=== PATIENT | female | born 1950 | race Caucasian/White ===

== ENCOUNTER → 2019-02-16 | Outpatient (CLI) | payer MEDICARE, OTHER, SELFPAY ==
[2015-02-05 22:56] VITALS: BMI 28.2
[2019-02-16 18:00] LABS: Anion Gap 3 (5-15); BUN 17 mg/dL (7-18); BUN/Creat Ratio 21.5 RATIO (10-20); Chloride 109 mmol/L (98-107); Creatinine, Serum 0.79 mg/dL (0.55-1.02); EST Glomerular Filtration Rate 77 mL/min (>60); Est Glom Filt Rate - Afr Amer 93 mL/min (>60); Glucose 84 mg/dL (74-106); Potassium 4.1 mmol/L (3.5-5.1); Sodium Level 140 mmol/L (136-145); T4 Total, Thyroxin 10.1 ug/dL (4.8-13.9); Thyroid Stim Hormone (TSH) 0.54 uIU/mL (0.358-3.74)
== END | disposition home or self-care (01) ==
LOC: MFPLAB 15:44
PROVIDERS: Family Provider Family Medicine; PCP Family Medicine; Referring Provider Family Medicine; Visit Provider Family Medicine
DX: E03.9 Hypothyroidism, unspecified (principal); I10 Essential (primary) hypertension
CPT/HCPCS: 36415; 80048; 84436; 84443

== ENCOUNTER → 2021-05-24 16:15 | Outpatient (CLI) | payer MEDICARE, SELFPAY ==
[2021-05-24 17:46] LABS: Absolute Neutrophil Count 3.6 X10^3/uL (2.0-7.7); Basophil# 0.07 X10^3/uL; Basophil% 1.1 % (0-1); Eosinophil# 0.13 X10^3/uL; Eosinophils% 2.1 % (0-5); Hematocrit 42.4 % (37-47); Hemoglobin 13.4 g/dL (12.0-15.0); Lymphocyte % 30.6 % (19-41); Mean Corp Hgb Conc 31.6 g/dL (32-36); Mean Corpuscular Hgb 29.6 pg (27.0-32.0); Mean Corpuscular Volume 93.6 fL (81-99); Mean Platelet Vol. 13.5 fl (6.2-12.0); Monocyte# 0.46 X10^3/uL; Monocyte% 7.4 % (0-10); NRBC Flagged by Analyzer 0 % (0-5); Neutrophil # 3.64 X10^3/uL (2.7-7.7); Neutrophil % 58.6 % (47-70); Platelet Count 155 K/mm3 (150-450); RBC Distribution Width SD 44.5 fl (35.1-43.9); Red Blood Count 4.53 M/mm3 (4.2-5.4); White Blood Count 6.2 K/mm3 (4.4-11.0)
[2021-05-24 18:10] LABS: Vitamin D,25 Hydroxy 22.5 ng/mL
[2021-05-24 18:16] LABS: ALB/GLOB Ratio 1.2 RATIO (0.9-2.4); AST(SGOT) 19 U/L (15-37); Alanine Aminotransfer ALT/SGPT 27 U/L (13-56); Albumin, Serum 3.9 g/dL (3.2-5.0); Alkaline Phosphatase 99 U/L (45-117); Anion Gap 6 (5-15); BUN 21 mg/dL (7-18); BUN/Creat Ratio 23.1 RATIO (10-20); Calcium,Total 8.9 mg/dL (8.5-10.1); Chloride 110 mmol/L (98-107); Creatinine, Serum 0.91 mg/dL (0.55-1.02); EST Glomerular Filtration Rate 65 mL/min (>60); Est Glom Filt Rate - Afr Amer 79 mL/min (>60); Globulin 3.2 g/dL (2.2-4.2); Glucose 101 mg/dL (74-106); Magnesium 2.5 mg/dL (1.6-2.6); Potassium 4.3 mmol/L (3.5-5.1); Protein, Total 7.1 g/dL (6.4-8.2); Sodium Level 142 mmol/L (136-145); T4 Total, Thyroxin 10.7 ug/dL (4.8-13.9); Thyroid Stim Hormone (TSH) 0.34 uIU/mL (0.358-3.74)
== END ==
PROVIDERS: PCP Family Medicine; Referring Provider Family Medicine; Visit Provider Family Medicine
DX: E03.9 Hypothyroidism, unspecified (principal); R25.2 Cramp and spasm; E55.9 Vitamin D deficiency, unspecified; I10 Essential (primary) hypertension
CPT/HCPCS: 36415; 80053; 82306; 83735; 84436; 84443; 85025

== ENCOUNTER → 2022-09-16 | Outpatient (CLI) | payer MEDICARE, SELFPAY ==
[2022-09-16 12:29] LABS: Absolute Lymphocyte Count 1.61 X10^3/uL (0.83-4.51); Absolute Neutrophil Count 3.1 X10^3/uL (2.0-7.7); Basophil# 0.05 X10^3/uL; Basophil% 0.9 % (0-1); Eosinophil# 0.13 X10^3/uL; Eosinophils% 2.4 % (0-5); Hematocrit 43.2 % (37-47); Hemoglobin 13.9 g/dL (12.0-15.0); Lymphocyte # 1.61 X10^3/ul (0.83-4.51); Lymphocyte % 30.1 % (19-41); Mean Corp Hgb Conc 32.2 g/dL (32-36); Mean Corpuscular Volume 93.1 fL (81-99); Mean Platelet Vol. 12.1 fl (6.2-12.0); Monocyte# 0.42 X10^3/uL; Monocyte% 7.9 % (0-10); NRBC Flagged by Analyzer 0 % (0-5); Neutrophil # 3.12 X10^3/uL (2.7-7.7); Neutrophil % 58.5 % (47-70); Platelet Count 163 K/mm3 (150-450); RBC Distribution Width CV 13.1 % (11.6-14.6); RBC Distribution Width SD 44.6 fl (35.1-43.9); Red Blood Count 4.64 M/mm3 (4.2-5.4); White Blood Count 5.3 K/mm3 (4.4-11.0)
[2022-09-16 13:12] LABS: Anion Gap 7 (5-15); BUN 20 mg/dL (7-18); BUN/Creat Ratio 29.2 RATIO (10-20); Calcium,Total 9.4 mg/dL (8.5-10.1); Chloride 109 mmol/L (98-107); Cholesterol 270 mg/dL (200); Creatinine, Serum 0.68 mg/dL (0.55-1.02); EST Glomerular Filtration Rate 90 mL/min (>60); Est Glom Filt Rate - Afr Amer 109 mL/min (>60); Glucose 92 mg/dL (74-106); High Density Lipoprotein 43 mg/dL; Magnesium 2.6 mg/dL (1.6-2.6); Sodium Level 141 mmol/L (136-145); Triglycerides 201 mg/dL; Very Low Density Lipoprotein 40 mg/dL (5-40)
== END | disposition home or self-care (01) ==
PROVIDERS: PCP Family Medicine; Referring Provider Family Medicine; Visit Provider Family Medicine
DX: I10 Essential (primary) hypertension (principal); K21.9 Gastro-esophageal reflux disease without esophagitis; E55.9 Vitamin D deficiency, unspecified
CPT/HCPCS: 36415; 80048; 80061; 82306; 83735; 85025

== ENCOUNTER 2023-12-08 19:12 | Emergency (ER) | payer MEDICARE, SELFPAY ==
[2023-12-08 19:14] VITALS: BP 150/73; PULSE 81; RESP 18; TEMP 36.1; O2SAT 99; BMI 25.4
[2023-12-08] MEDS: Ketorolac 15 MG/ML Vial IV (19:59)
[2023-12-08 20:10] LABS: Absolute Lymphocyte Count 2.59 X10^3/uL (0.83-4.51); Absolute Neutrophil Count 5.5 X10^3/uL (2.0-7.7); Basophil# 0.09 X10^3/uL; Eosinophil# 0.16 X10^3/uL; Eosinophils% 1.8 % (0-5); Hematocrit 41.9 % (37-47); Hemoglobin 13.5 g/dL (12.0-15.0); Lymphocyte # 2.59 X10^3/ul (0.83-4.51); Lymphocyte % 29.2 % (19-41); Mean Corp Hgb Conc 32.2 g/dL (32-36); Mean Corpuscular Hgb 29.3 pg (27.0-32.0); Mean Corpuscular Volume 91.1 fL (81-99); Mean Platelet Vol. 11.9 fl (6.2-12.0); Monocyte# 0.42 X10^3/uL; Monocyte% 4.7 % (0-10); NRBC Flagged by Analyzer 0 % (0-5); Neutrophil # 5.54 X10^3/uL (2.7-7.7); Neutrophil % 62.6 % (47-70); Platelet Count 174 K/mm3 (150-450); RBC Distribution Width CV 13.7 % (11.6-14.6); RBC Distribution Width SD 45.4 fl (35.1-43.9); White Blood Count 8.9 K/mm3 (4.4-11.0)
--- NOTE | 2023-12-08 20:10 | RAD_ITS ---
STUDY: X-RAY - LEFT HAND REASON FOR EXAM: Female, 73 years old. hand injury TECHNIQUE: 3 view(s) of the hand. COMPARISON: None. FINDINGS: No radiodense foreign body. Normal radiocarpal articulation. Normal distal radioulnar joint. Normal visualized carpal bones. Normal carpal articulations Normal carpometacarpal articulation of the thumb. Normal second through fifth carpometacarpal joints. Normal metacarpi. Normal metacarpophalangeal joint of the thumb. Normal interphalangeal joint of the thumb. Normal proximal and distal phalanges of the thumb. Normal metacarpophalangeal joints of the second through fifth fingers. There is diffuse articular joint space narrowing of the proximal and distal interphalangeal joints of the second through fifth fingers, but without erosive changes or periarticular soft tissue swelling. Normal phalanges of the second through fifth fingers. Soft tissue swelling index finger. RAD/Hand Min 3 Views IMPRESSION: Severe degenerative changes interphalangeal joints. Soft tissue swelling index finger. No radiodense foreign body. Electronically Signed: Chris Martell MD at 20:36 EDT ,
[2023-12-08 20:42] LABS: Anion Gap 7 (5-15); BUN 21 mg/dL (7-18); BUN/Creat Ratio 18.9 RATIO (10-20); Calcium,Total 9.1 mg/dL (8.5-10.1); Chloride 109 mmol/L (98-107); Creatinine, Serum 1.11 mg/dL (0.55-1.02); EST Glomerular Filtration Rate 51 mL/min (>60); Est Glom Filt Rate - Afr Amer 62 mL/min (>60); Estimated Creatinine Clearance 36.34 ml/min; Glucose 165 mg/dL (74-106); Potassium 3.9 mmol/L (3.5-5.1); Sodium Level 141 mmol/L (136-145)
--- NOTE | 2023-12-08 21:17 | EDS_ITS ---
HPI History of Present Illness Chief Complaint: Cellulitis Narrative Narrative: Patient presenting with left hand pain. Patient states she was trimming the bushes yesterday and had some dacia that she was pulling down and some sticks that she was trimming and she thought that because she had scrapes on the palmar surface and dorsal surface of her hand that is thick and gone through her hand. She states she removed this and is cleaned it up to get some bruising and swelling located over the left hand proximal to the MCP of this fourth and fifth digit. No numbness or tingling. She initially stated she had pain that went up her arm however after further discussion she states that a door at home had fallen onto her left shoulder and forearm and that is where the pain was coming from. She states she does not want this evaluated as this is not very painful. She does have some bruising noted on the left forearm laterally. She has not had any systemic signs or symptoms. [facility] Medical History Back problem Goiter High cholesterol High triglycerides History of cancer History of fracture Hypertension Rheumatoid arthritis Thyroid disease Vision problem Home Medications ibuprofen 200 mg tablet 200 mg PO Q6H PRN 02/03/23 [History Last Taken Unknown] levothyroxine 75 mcg capsule 75 mcg PO DAILY 02/03/23 [History Last Taken Unknown] lisinopril 10 mg tablet 10 mg PO DAILY 02/03/23 [History Last Taken Unknown] rosuvastatin 10 mg tablet 10 mg PO DAILY 02/03/23 [History Last Taken Unknown] Allergy/AdvReac Type Severity Reaction Status Date / Time No Known Allergies Allergy Verified 12/08/23 19:14 Social History Smoking Status: Never smoker alcohol intake: never substance use type: does not use what type of physical activity do you participate in: none ROS ROS ED Constitutional Constitutional ED: Denies chills, fever(s) or sweats Eyes Eyes: Denies blurry vision or change in vision ENT ENT ED: Denies ear pain or sore throat Cardiovascular Cardiovascular: Denies chest pain, palpitations or racing heartbeat Respiratory/Chest Respiratory/Chest: Denies cough, dyspnea or sputum Gastrointestinal Gastrointestinal: Denies abdominal pain, constipation, diarrhea, nausea or vomiting Genitourinary Genitourinary ED: Denies dysuria, hematuria or urinary frequency Musculoskeletal Musculoskeletal: Reports other Details: Left hand pain ; Denies arthralgias, myalgias or neck pain Integumentary Reports other Details: Bruising and swelling left hand ; Denies abscess, Abrasions or rash Neurologic Neurologic: Denies headache(s), paresthesias or weakness Psychiatric Psychiatric: Denies anxiety, depression, suicidal ideation or suicidal thoughts Endocrine Endocrinology: Denies polydipsia or polyuria EXAM Physical Exam Const Vital Signs: 12/08/23 19:14 Temperature 97 F L Temperature Source Temporal Pulse Rate 81 Respiratory Rate 18 Blood Pressure 150/73 H Blood Pressure Mean 98 Pulse Ox 99 Oxygen Delivery Method Room Air Positive well nourished General Appearance ED: NAD; Negative for pallor HEENT Reports moist mucous membranes Eyes PERRL Resp normal respiratory effort Cardio regular rate and regular rhythm Extremity Extremity Narrative: There is tenderness over the left hand at the dorsal aspect proximal to the fourth and third MCP. There is no obvious deformity. There does not appear to be any puncture wound. There does appear to be a superficial abrasion. On the volar surface there are also some superficial abrasions. She has brisk cap refill to all 5 fingers. There is pain with range of motion diffusely. There is no numbness. Cap refill is brisk. There is no evidence of cellulitis or lymphangitic streaking. Neuro oriented x3 Psych mental status grossly normal Skin General Skin Exam: Negative for jaundice or pallor MDM MDM MDM Narrative Medical decision making narrative: Patient presenting with left hand pain. She is not a great informant about the history of how she hurt her hand but for the most part it sounds like she had a vine wrapped around her hand and some sticks that caused superficial abrasions to the hand as well. Does not appear to be a through and through injury. Neurovascularly her hand is intact. She was concerned for infection but I do not see any evidence of that. Due to the concern we did check some basic lab work and her CBC does not show any evidence of leukocytosis. Hemoglobin stable. Platelets are normal. Creatinine slightly elevated at 1.11. Patient counseled of this and I stated that she needed to drink more fluids. She states I drink a lot of water.. I discussed with her that she does not need any antibiotics. I recommended [id number] Tylenol and I recommended ice. She states he is going a road trip tomorrow and she thought that icing it would be difficult but I recommended she stopped every few hours and get some ice to ice her hand. I recommend she ice for 10 to 15 minutes and then electrolyte and temperature and reice it. I recommended elevation. I do not believe she needs any narcotics. We discussed this at length and she is comfortable with this. Impression: 1. Superficial abrasion left hand 2. Left hand contusion Lab Data Attestation: I reviewed the patient's lab results. Labs: Laboratory Results - last 24 hr 12/08/23 20:00 WBC 8.9 RBC 4.60 Hgb 13.5 Hct 41.9 MCV 91.1 MCH 29.3 MCHC 32.2 RDW Std Deviation 45.4 H RDW Coeff of Surendra 13.7 Plt Count 174 MPV 11.9 Immature Gran % (Auto) 0.700 Neut % (Auto) 62.6 Lymph % (Auto) 29.2 [place] % (Auto) 4.7 Eos % (Auto) 1.8 Baso % (Auto) 1.0 Absolute Neuts (auto) 5.5 Absolute Lymphs (auto) 2.59 Nucleated RBC % 0 Sodium 141 Potassium 3.9 Chloride 109 H Carbon Dioxide 25.0 Anion Gap 7 BUN 21 H Creatinine 1.11 H Estim Creat Clear Calc 36.34 Est GFR (MDRD) Af Amer 62 Est GFR (MDRD) Non-Af 51 L BUN/Creatinine Ratio 18.9 Glucose 165 H Calcium 9.1 Radiography Diagnostic Testing: Clinical Impression(s) from Imaging Studies Hand X-Ray 12/08/23 20:10 IMPRESSION: Severe degenerative changes interphalangeal joints. Soft tissue swelling index finger. No radiodense foreign body. Electronically Signed: Chris Martell MD at 20:36 EDT , Discharge Plan Triage Chief Complaint: Cellulitis ED Provider: Magdy Morales Dx/Rx/DC Orders Prescriptions: No Action rosuvastatin 10 mg tablet 10 mg PO DAILY levothyroxine 75 mcg capsule 75 mcg PO DAILY lisinopril 10 mg tablet 10 mg PO DAILY ibuprofen 200 mg tablet 200 mg PO Q6H PRN Primary Care Provider: Lesly Reed Referrals: Lesly Reed MD [Primary Care Provider] -
[2023-12-08 21:22] VITALS: BP 122/65; PULSE 53; RESP 16; TEMP 36.8; O2SAT 99
== END 2023-12-08 22:04 | disposition home or self-care (01) ==
PROVIDERS: Emergency Provider Student in an Organized Health Care Education/Training Program; PCP Family Medicine; Visit Provider Student in an Organized Health Care Education/Training Program
DX: S60.222A Contusion of left hand, initial encounter (principal); S60.512A Abrasion of left hand, initial encounter; X58.XXXA Exposure to other specified factors, initial encounter; Y93.H2 Activity, gardening and landscaping; E78.00 Pure hypercholesterolemia, unspecified; I10 Essential (primary) hypertension; Z79.899 Other long term (current) drug therapy
CPT/HCPCS: 73130; 80048; 85025; 96374; 99283; A4216

== ENCOUNTER → 2024-01-12 | Outpatient (CLI) | payer MEDICARE, SELFPAY ==
[2024-01-12 13:36] LABS: AST(SGOT) 29 U/L (15-37); Alanine Aminotransfer ALT/SGPT 40 U/L (13-56); Anion Gap 9 (5-15); BUN 23 mg/dL (7-18); BUN/Creat Ratio 21.1 RATIO (10-20); Calcium,Total 9.5 mg/dL (8.5-10.1); Chloride 107 mmol/L (98-107); Cholesterol 313 mg/dL (200); Creatinine, Serum 1.09 mg/dL (0.55-1.02); EST Glomerular Filtration Rate 52 mL/min (>60); Est Glom Filt Rate - Afr Amer 63 mL/min (>60); Glucose 102 mg/dL (74-106); High Density Lipoprotein 42 mg/dL; Potassium 4.3 mmol/L (3.5-5.1); Sodium Level 139 mmol/L (136-145); T4 Total, Thyroxin 2.3 ug/dL (4.8-13.9); Triglycerides 172 mg/dL; Very Low Density Lipoprotein 34 mg/dL (5-40)
[2024-01-12 13:42] LABS: Vitamin D,25 Hydroxy 29.6 ng/mL
[2024-01-12 16:15] LABS: Protein, Urine (Random) < 6.0 mg/dL (<11.9)
== END | disposition home or self-care (01) ==
LOC: MFPLAB 10:36
PROVIDERS: PCP Family Medicine; Visit Provider Family Medicine
DX: E78.5 Hyperlipidemia, unspecified (principal); E55.9 Vitamin D deficiency, unspecified; E03.9 Hypothyroidism, unspecified; I10 Essential (primary) hypertension
CPT/HCPCS: 36415; 80048; 80061; 82306; 82570; 84156; 84436; 84443; 84450; 84460

== ENCOUNTER → 2025-02-14 | Outpatient (CLI) | payer MEDICARE, SELFPAY ==
[2025-02-14 17:50] LABS: Absolute Lymphocyte Count 1.64 X10^3/uL (0.83-4.51); Absolute Neutrophil Count 3.9 X10^3/uL (2.0-7.7); Basophil# 0.06 X10^3/uL; Eosinophil# 0.14 X10^3/uL; Eosinophils% 2.3 % (0-5); Hematocrit 36.7 % (37-47); Hemoglobin 11.8 g/dL (12.0-15.0); Lymphocyte # 1.64 X10^3/ul (0.83-4.51); Lymphocyte % 26.4 % (19-41); Mean Corp Hgb Conc 32.2 g/dL (32-36); Mean Corpuscular Hgb 29.7 pg (27.0-32.0); Mean Corpuscular Volume 92.4 fL (81-99); Mean Platelet Vol. 12.7 fl (6.2-12.0); Monocyte# 0.44 X10^3/uL; Monocyte% 7.1 % (0-10); NRBC Flagged by Analyzer 0 % (0-5); Neutrophil # 3.92 X10^3/uL (2.7-7.7); Platelet Count 160 K/mm3 (150-450); RBC Distribution Width CV 12.9 % (11.6-14.6); RBC Distribution Width SD 43.8 fl (35.1-43.9); Red Blood Count 3.97 M/mm3 (4.2-5.4); White Blood Count 6.2 K/mm3 (4.4-11.0)
[2025-02-14 18:26] LABS: ALB/GLOB Ratio 1.8 RATIO (0.9-2.4); AST(SGOT) 24 U/L (<=31); Alanine Aminotransfer ALT/SGPT 29 U/L (<=34); Albumin, Serum 4.1 g/dL (3.4-4.8); Alkaline Phosphatase 97 U/L (35-104); Anion Gap 11 (5-15); BUN 16 mg/dL (4-19); Calcium,Total 9.9 mg/dL (7.6-11.0); Carbon Dioxide 24.3 mmol/L (21.0-32.0); Chloride 104 mmol/L (98-108); Creatinine, Serum 0.84 mg/dL (0.70-1.20); EST Glomerular Filtration Rate 73 (>60); Globulin 2.2 g/dL (2.2-4.2); Glucose 164 mg/dL (70-99); Potassium 4.1 mmol/L (3.3-5.1); Protein, Total 6.3 g/dL (5.9-8.4); Sodium Level 140 mmol/L (133-145); Thyroid Stim Hormone (TSH) 0.074 uIU/mL (0.300-4.200); Total Bilirubin 1.16 mg/dL (0.00-1.30)
[2025-02-14 18:27] LABS: Magnesium 2.6 mg/dL (1.5-2.2); Rheumatoid Factor < 10.0 IU/mL (<15)
== END | disposition home or self-care (01) ==
LOC: MFPLAB 15:19
PROVIDERS: PCP Family Medicine; Referring Provider Family Medicine; Visit Provider Family Medicine
DX: M25.9 Joint disorder, unspecified (principal); I73.9 Peripheral vascular disease, unspecified
CPT/HCPCS: 36415; 80053; 83735; 84443; 85025; 86431

== ENCOUNTER → 2025-03-14 | Outpatient (CLI) | payer MEDICARE, SELFPAY ==
--- NOTE | 2025-03-14 14:05 | ART_ITS ---
Reason For Study Reason For Study: Claudication Procedure A bilateral lower extremity continuous wave Doppler with analog waveform analysis and ankle brachial indexes. Left Segmental Pressures Left brachial= 121mmHg. Left posterior tibial artery = 139mmHg. Left dorsalis pedis artery = 131mmHg. The left dorsalis pedis waveforms are triphasic. The left posterior tibial artery waveforms are triphasic. Right Segmental Pressures Right brachial= 122mmHg. Right posterior tibial artery = 128mmHg. Right dorsalis pedis artery = 133mmHg. The right dorsalis pedis waveforms are triphasic. The right posterior tibial artery waveforms are triphasic. Indices The right ankle brachial index by the dorsalis pedis is 1.09. The right ankle brachial index by the posterior tibial artery is 1.05. The left ankle brachial index by the dorsalis pedis is 1.07. The left ankle brachial index by the posterior tibial artery is 1.14. VL/Ankle Brachial Index Interpretation Summary Triphasic Doppler waveforms are noted at ankle level bilaterally. Pulse-volume recordings appear satisfactory at ankle and digital level bilaterally. Resting ankle-brachial indices are normal bilate rally. There is no evidence of significant arterial occlusive disease in the lower ext remities bilaterally. Ordering Physician: Berkley Ceballos Referring Physician: BERKLEY CEBALLOS MD Performed By: Zelda Khan RVT
== END | disposition home or self-care (01) ==
LOC: CVS 14:03
PROVIDERS: PCP Family Medicine; Referring Provider Family Medicine; Visit Provider Family Medicine
DX: I73.9 Peripheral vascular disease, unspecified (principal)
CPT/HCPCS: 93922

== ENCOUNTER → 2025-03-28 | Outpatient (CLI) | payer MEDICARE, SELFPAY ==
--- NOTE | 2025-03-28 12:55 | RAD_ITS ---
PROCEDURE: HAND MIN 3 VIEWS 03/28/2025 REASON FOR EXAM: ARTHRITIS AND PAIN; LEFT TECHNIQUE: HAND MIN 3 VIEWS COMPARISON: No FINDINGS: Lateral wrist osteoarthritis. Scattered hand osteoarthritis, mainly interphalangeal joint space narrowing, subchondral sclerosis, subchondral cysts, small erosions, and osteophytes. Soft tissue swelling, most pronounced 2nd and 3rd digits, PIP joint regions. No acute bone pathology. RAD/Hand Min 3 Views IMPRESSION: Erosive osteoarthritis [facility]
--- NOTE | 2025-03-28 12:55 | RAD_ITS ---
PROCEDURE: LUMBAR SPINE 2 OR 3 VIEWS 03/28/2025 REASON FOR EXAM: LEG PAIN NIGHT AND DAY, POSSIBLE NEUROGENIC CLAUDICATION TECHNIQUE: LUMBAR SPINE 2 OR 3 VIEWS COMPARISON: None. FINDINGS: Vertebrae: Osteopenia. No acute bony abnormalities. No fractures. Discs: Multilevel disc space narrowing with sclerotic endplates and facet joint arthropathy, predominantly at L5-S1. Alignment: Normal alignment. Mild right-sided curvature of the thoracolumbar spine. RAD/Lumbar Spine 2 or 3 Views IMPRESSION: Degenerative changes, predominantly at L5-S1 of disc space narrowing and facet joint arthropathy. Reading Location: [id number]
--- NOTE | 2025-03-28 12:55 | RAD_ITS ---
PROCEDURE: HAND MIN 3 VIEWS 03/28/2025 REASON FOR EXAM: ARTHRITIS AND PAIN TECHNIQUE: HAND MIN 3 VIEWS COMPARISON: No FINDINGS: Lateral wrist osteoarthritis. Scattered hand osteoarthritis, mainly interphalangeal joint space narrowing, osteophytes, subchondral sclerosis and small erosions. No acute bone pathology. There is soft tissue swelling, 2nd and 3rd digits, PIP joint space region. RAD/Hand Min 3 Views IMPRESSION: Erosive osteoarthritis. [facility]
[2025-03-28 15:58] LABS: PTHIN 41 pg/mL (11-61)
[2025-03-28 16:09] LABS: AST(SGOT) 24 U/L (<=31); Alanine Aminotransfer ALT/SGPT 27 U/L (<=34); Albumin, Serum 4.8 g/dL (3.4-4.8); Alkaline Phosphatase 97 U/L (35-104); Anion Gap 13 (5-15); BUN 21 mg/dL (4-19); BUN/Creat Ratio 25.8 RATIO (10-20); Calcium,Total 10.3 mg/dL (7.6-11.0); Carbon Dioxide 24.2 mmol/L (21.0-32.0); Chloride 104 mmol/L (98-108); Ferritin 311 ng/mL (22-378); Globulin 2.1 g/dL (2.2-4.2); Glucose 92 mg/dL (70-99); Potassium 4.5 mmol/L (3.3-5.1); Syphilis Antibodies Nonreactive (Nonreactive); T3 Total - Triiodothyronine 0.77 ng/mL (0.80-2.00); Vitamin B12 475 pg/mL (180-914); Vitamin D,25 Hydroxy 37.7 ng/mL (30-100)
[2025-03-28 16:29] LABS: FOLATES,SERUM (FOLIC ACID) 6.00 ng/mL (4.60-34.80)
[2025-03-29 09:44] LABS: Free T3 2.3 pg/mL (2.18-3.98)
[2025-03-30 17:08] LABS: PROEL- A/G Ratio 1.5 (0.7-1.7); PROEL- Albumin 4.2 g/dL (2.9-4.4); PROEL- Alpha-1 Globulin 0.2 g/dL (0.0-0.4); PROEL- Alpha-2 Globulin 0.7 g/dL (0.4-1.0); PROEL- Beta Globulin 1.0 g/dL (0.7-1.3); PROEL- Gamma Globulin 0.9 g/dL (0.4-1.8); PROEL- Globulin, Total 2.8 g/dL (2.2-3.9); PROEL- TOTAL PROTEIN 7.0 g/dL (6.0-8.5); PROEL-M-Spike Not Observed g/dL (Not Observed)
[2025-03-31 10:08] LABS: Anti-Chromatin <0.2 AI (0.0-0.9); Anti-Jo <0.2 AI (0.0-0.9); Anti-dsDNA Ab 6 IU/mL (0-9); Anti-ribosomal P Antibodies <0.2 AI (0.0-0.9); SJOGREN'S Anti-SS-A test 0.3 AI (0.0-0.9); SJOGREN'S Anti-SS-B test < 0.2 AI (0.0-0.9); Smith/RNP Ab <0.2 AI (0.0-0.9)
== END | disposition home or self-care (01) ==
LOC: MTLAB 12:55
PROVIDERS: PCP Family Medicine; Referring Provider Family Medicine; Visit Provider Family Medicine
DX: M25.50 Pain in unspecified joint (principal); R25.2 Cramp and spasm; E03.9 Hypothyroidism, unspecified
CPT/HCPCS: 36415; 72100; 73130; 80053; 82306; 82607; 82728; 82746; 83970; 84165; 84439; 84443; 84480; 84481; 85652; 86038; 86200; 86225; 86235; 86780

== ENCOUNTER → 2025-04-07 | Outpatient (CLI) | payer MEDICARE, SELFPAY ==
--- NOTE | 2025-04-07 16:15 | RAD_ITS ---
PROCEDURE: FEMUR MIN 2 VIEWS 04/07/2025 REASON FOR EXAM: CHRONIC PAIN TECHNIQUE: FEMUR MIN 2 VIEWS Laterality: Left COMPARISON: None FINDINGS: Bones: No bony abnormality is seen. Joints: Normal alignment at the hip and knee. Soft tissues: Soft tissues are unremarkable. Other: RAD/Femur Min 2 Views IMPRESSION: NEGATIVE FEMUR Reading Location: [id number]
== END | disposition home or self-care (01) ==
LOC: MTRAD 16:07
PROVIDERS: PCP Family Medicine; Referring Provider Family Medicine; Visit Provider Family Medicine
DX: M79.652 Pain in left thigh (principal)
CPT/HCPCS: 73552